=== PATIENT | female | born 1935 | race Caucasian/White ===

== ENCOUNTER 2020-07-17 09:16 | Outpatient (CLI) | payer MEDICARE, SELFPAY | END 2020-07-17 09:17 | disposition home or self-care (01) | LOC: ANHCOVIDVC 09:17 | PROVIDERS: PCP Family Medicine | DX: Z23 Encounter for immunization (principal) | CPT/HCPCS: 0001A; 91300 ==

== ENCOUNTER 2020-08-07 09:16 | Outpatient (CLI) | payer MEDICARE, SELFPAY | END 2020-08-07 09:17 | disposition home or self-care (01) | LOC: ANHCOVIDVC 09:16 | PROVIDERS: PCP Family Medicine | DX: Z23 Encounter for immunization (principal) | CPT/HCPCS: 0002A; 91300 ==

== ENCOUNTER 2021-07-03 11:44 | Inpatient (IN) | payer MEDICARE, SELFPAY ==
[2021-07-03] VITALS (8 sets, daily range): BP systolic 109–155; BP diastolic 51–97; PULSE 98–119; RESP 16–22; TEMP 36.4–36.9; O2SAT 94–100
--- NOTE | ~2021-07-03 | XR_ITS ---
EXAMINATION: XR chest 1V portable DATE: 07/03/2021 12:23 INDICATION: Found down. Weakness. TECHNIQUE: frontal view of the chest was obtained. COMPARISON: Chest radiograph dated 12/25/2018 FINDINGS: Mild opacities in the bilateral lower lung zones. No pleural effusion or pneumothorax. Cardiomegaly. Chronic compression and burst fractures in the lower thoracic and upper lumbar spine. Degenerative sk eletal changes in the spine and at the bilateral shoulders. IMPRESSION: 1. Mild opacities in the bilateral lower lung zones which could represent atelectasis, mild pulmonary edema or pneumonia. 2. Cardiomegaly. 3. Chronic compression and burst fractures in the lower thoracic and upper lumbar spine. Reviewed, dictated and finalized at location A. ER INSPECTOR IMPRESSION: 1. Mild opacities in the bilateral lower lung zones which could represent atele ctasis, mild pulmonary edema or pneumonia. 2. Cardiomegaly. 3. Chronic compression and burst fractures in the lower thoracic and upper lumb ar spine.
--- NOTE | ~2021-07-03 | CT_ITS ---
EXAMINATION: CT brain wo con DATE: 07/03/2021 12:58 INDICATION: Found down post fall. Weakness. TECHNIQUE: Computed tomography (CT) of the head was performed without intravenous contrast. Sagittal and coronal reconstructions were performed. The mA was adjusted according to patient size. Iterative reconstruction technique was employed. The dose-length product was 681.00 mGy-cm. COMPARISON: head CT dated 12/17/2018 FINDINGS: No fracture. No acute intracranial hemorrhage, acute infarction or abnormal extra axial fluid collect ion. There is mild scattered white matter hypoattenuation consistent with chronic small vessel ischem ic disease. Symmetric prominence of the sulci and ventricles consistent with moderate age-appropriate diffuse cerebral volume loss. No mass/mass effect. Intracranial calcified cerebral atherosclerosis i s noted at the carotid siphons. The orbits, paranasal sinuses and mastoid air cells are normal. IMPRESSION: 1. No fracture or acute intracranial process. 2. Age-related changes including moderate diffuse volume loss and mild scattered white matter hypoatt enuation consistent with chronic small vessel ischemic disease. Reviewed, dictated and finalized at location A. EF MASTER IMPRESSION: 1. No fracture or acute intracranial process. 2. Age-related changes including moderate diffuse volume loss and mild scattere d white matter hypoattenuation consistent with chronic small vessel ischemic di sease.
--- NOTE | ~2021-07-03 | CT_ITS ---
EXAMINATION: CT cervical spine wo con DATE: 07/03/2021 12:58 INDICATION: Ground-level fall with head injury. Weakness. TECHNIQUE: Computed tomography (CT) of the cervical spine was performed without intravenous contrast. Automated exposure control and iterative reconstruction technique were employed. The dose-length pro duct was 288.75 mGy-cm. COMPARISON: 12/17/2018 FINDINGS: Mild cervical dextrocurvature. Sagittal alignment is normal. Vertebral body heights are normal. No fr acture identified. There is anterior fusion at C5-C6. Moderate disc height loss at C4-C5 and C6-C7. M ild disc height loss at the remaining cervical levels. Multilevel disc bulges and disc osteophyte com plexes throughout the cervical spine resulting in multilevel mild central canal stenosis greatest at C2-C3 and C5-C6. Multilevel moderate to severe bilateral facet and uncovertebral osteoarthritis contr ibuting to mild neural foraminal stenosis at multiple levels on both the left and right. Small amount of atherosclerotic calcific lesion at the bilateral carotid bulbs. Cervical soft tissues are otherwi se unremarkable. Chronic pleural parenchymal scarring at the posterolateral right upper lobe. IMPRESSION: 1. Moderate to severe cervical spondylosis. No acute osseous abnormality. Reviewed, dictated and finalized at location A. CTOR NON PROFIT
--- NOTE | 2021-07-03 12:05 | ECG_ITS ---
Measurements Intervals [place] Rate: 94 P: 56 MN: 114 QRS: 3 QRSD: 89 T: 14 QT: 366 QTc: 459 Interpretive Statements SINUS RHYTHM WITH SHORT MN INTERVAL DELAYED PRECORDIAL R/S TRANSITION BORDERLINE ST-T WAVE ABNORMALITY- ANT/INF LEADS BASELINE ARTIFACT- I, II, III, AVR, AVL, AVF, V1-V6 BORDERLINE ECG Electronically Signed On 07-03-2021 18:45:44 [employer] by Angel Castro D.O.
--- NOTE | 2021-07-03 12:18 | ED.FALL ---
HPI - Fall General Chief Complaint: Fall Stated Complaint: WEAKNESS Time Seen by Provider: 07/03/21 11:56 Source: patient and family History of Present Illness HPI Narrative: Patient lives alone and was found on the ground next to her bed by her son. Her son checks on her mostly works week to fill her pillowcase. Today but he went to check on her she was laying next to the bed wrapped up in a vacuum cord with her head on a pillow reports her pants were partially down and she had stooled on the floor. Patient does not remember what happened she reports she is old and cannot remember. Related Data Home Medications Medication Instructions Recorded Confirmed cranberry 400 mg capsule 400 mg PO DAILY 04/03/19 07/03/21 Allergies Allergy/AdvReac Type Severity Reaction Status Date / Time No Known Allergies Allergy Verified 07/03/21 11:51 Review of Systems Review of Systems: CONSTITUTIONAL: Denies fever, chills, or sweats. EYES: Denies visual changes, redness, or discharge. ENT: Denies rhinorrhea, congestion, sore throat, or otalgia. CARDIOVASCULAR: Denies chest pain, palpitations, or edema. RESPIRATORY: Denies cough or dyspnea. GASTROINTESTINAL: Denies abdominal pain, nausea, vomiting, or diarrhea. GENITOURINARY: Denies dysuria or hematuria. SKIN: Denies rash or itching. MUSCULOSKELETAL: Denies back pain, joint pain, or myalgia. NEUROLOGIC: Denies headache, numbness, dizziness, or weakness. PSYCHIATRIC: Denies anxiety or depression. All systems reviewed & are unremarkable except as noted in HPI and below PMFSH Surgical History Surgical History H/O: hysterectomy total 1980 Family History Family History Mother Depression Other Family history of cardiovascular disease Social History Social History Smoking status: Never smoker Second hand tobacco smoke exposure: No Alcohol intake: never Substance use: never Spiritual care concerns: No Exam Narrative: GENERAL: Well-appearing, well-nourished, and in no acute distress. HEAD: Normocephalic, atraumatic. EYES: PERRLA and EOMI. ENT: Nares clear, no rhinorrhea or epistaxis. Mucous membranes moist. NECK: Supple. No masses. No JVD CHEST: Clear to auscultation. No respiratory distress. No wheezes rales or rhonchi HEART: Regular tachycardia. No murmur heard. Normal peripheral pulses. ABDOMEN: Soft, nontender, nondistended, normal active bowel sounds. EXTREMITIES: Normal range of motion. No edema. SKIN: Warm, dry, no rash. NEURO: No focal deficits. Alert and oriented x2. PSYCH: Normal mood and affect. Course Reevaluation(s) Reevaluation #1: Patient resting comfortably results and plan reviewed with patient. Patient is comfortable with inpatient plan. Vital Signs Vital signs: Vital Signs Temperature 36.6 C 07/03/21 11:46 Pulse Rate 119 H 07/03/21 11:46 Respiratory Rate 20 07/03/21 11:46 Blood Pressure 150/97 H 07/03/21 11:46 Pulse Oximetry 95 07/03/21 11:46 Temperature 36.9 C 07/03/21 16:35 Pulse Rate 98 07/03/21 17:00 Respiratory Rate 16 07/03/21 16:35 Blood Pressure 109/57 L 07/03/21 16:35 Pulse Oximetry 100 07/03/21 16:35 MDM - Fall MDM Narrative Medical decision making narrative: Patient was brought to the ER after she was found down there is unknown downtime patient does not recall the events. She had no focal areas of pain and appeared to be neurologically at her baseline at time of my evaluation. Labs and imaging obtained notable for elevated CK UA concerning for infection imaging was without acute process. Patient was started on antibiotics and fluids. Patient will be admitted to the hospitalist team for further management. Lab Data Result diagrams: 07/03/21 12:12 07/03/21 12:12 Labs: Lab Results
[2021-07-03] MEDS: SODIUM CHLORIDE 0.9% IV 1,000 ML 999 ML IV CONT ×2 (12:26→15:15)
[2021-07-03 12:29] LABS: Basophils Percent Auto 0.1 % (0.2-1.2); Hematocrit 40.6 % (37.0-47.0); Hemoglobin 13.4 g/dL (12.0-15.0); Immature Granulocyte Percent A 0.6 % (0-0.5); Lymphocytes Absolute Auto 0.69 K/mm3 (0.9-3.2); Lymphocytes Percent Auto 4.4 % (18.3-44.2); Mean Corpuscular Hemoglobin 27.9 pg (26-34); Mean Corpuscular Volume 84.6 fl (80-100); Mean Platelet Volume 9.8 fl (7.4-10.4); Monocytes Absolute Auto 1.1 K/mm3 (0.1-0.6); Neutrophils Absolute Auto 13.7 K/mm3 (1.3-6.7); Neutrophils Percent Auto 87.9 % (45.5-73.1); Platelet Count Result 428 k/mm3 (150-375); Red Cell Distribution Width 15.2 % (11.5-14.5); White Blood Count 15.6 K/mm3 (4.5-10.0)
[2021-07-03 12:54] LABS: Alanine Aminotransferase 62 U/L (4-35); Albumin Level 3.7 g/dL (3.5-5.1); Alkaline Phosphatase 124 U/L (38-126); Anion Gap 13 mmol/L (8-16); Aspartate Amino Transferase 198 U/L (14-36); Blood Urea Nitrogen 35 mg/dL (7-17); Calcium 9.9 mg/dL (8.4-10.2); Carbon Dioxide 20 mmol/L (22-30); Chloride 104 mmol/L (98-107); Creatine Kinase 3104 U/L (30-135); Estimated CRCL calculation 31 ml/min; Estimated Glomerular Filt Rate 43; Glucose 151 mg/dL (65-110); Potassium 4.8 mmol/L (3.4-5.0); Sodium 137 mmol/L (137-145)
[2021-07-03 13:57] LABS: Add Urine Microscopic? YES; Appearance Urine Clear (Clear); Bilirubin Urine Negative (Negative); Blood Urine 3+ (Negative); Color Urine Yellow (Yellow); Glucose Urine UA Negative (Negative); Ketones Urine Trace mg/dL (Negative); Leukocyte Esterase Ur 1+ LEU/UL (Negative); Mucus Urine Rare /lpf; Nitrate Urine Positive (Negative); Protein Urine 1+ mg/dL (Negative); Specific Grav Ur 1.017 (1.001-1.035); Squamous Epithelial Cell Urine Rare /hpf (Few); Urobilinogen Urine Negative mg/dL (<2.0); WBC Urine >75 /hpf
[2021-07-03 14:28] LABS: Lactic Acid Reflex 2.6 mmol/L (0.7-2.1)
--- NOTE | 2021-07-03 15:00 | PM.IMHP ---
H&P: HPI History of Present Illness Date/Time: 07/03/21 15:00 Chief Complaint: Found down. Narrative: This is a pleasant 85-year-old female with history of hypertension, hypothyroidism, GERD, and anxiety presented to the emergency department via EMS from home for evaluation after she was found down by her son. She seems to be forgetful though has no formal diagnosis of dementia. As such she is not able to provide a great history and she seems to not really recall what happened today. It is my understanding that she lives in her own home and is typically quite independent the her son comes by every Monday to help get her medications in order. When he arrived today she was found lying on the floor in her bedroom. She was apparently tangled up in a vacuum cord, her pants were partially down, and she had stooled floor. She was found to be in mild rhabdomyolysis and is being admitted in this setting. At the time my evaluation, she has no complaints aside from the fact that she is a bit thirsty and hungry. She does not recall how she ended up on the floor and seems to confabulate somewhat though she is alert and oriented at this time. She denies headache, fever, chills, sweats, recent cold and flu symptoms, chest pain, shortness breast, nausea, vomiting, diarrhea, and dysuria. She does not think she sustained any injuries and she has no complaints of pain. Review of Systems Review of Systems: Twelve systems were reviewed and are negative except for as per HPI. FORMERLY [facility], [facility] Past Medical History Medical History (Updated 07/03/21 @ 23:43 by Genet Freitas PA-C) Benign essential hypertension Chronic kidney disease, stage 3 Chronic recurrent major depressive disorder Hyperlipidemia Hypothyroidism Surgical History Surgical History (Updated 07/03/21 @ 23:39 by Genet Freitas PA-C) History of total hysterectomy (1980) Family History Family History Mother Depression Other Family history of cardiovascular disease Social History Social History (Updated 07/03/21 @ 23:40 by Genet Freitas PA-C) Social History: Surrogate decision maker: Dustin Roberto, mychal. Code status: Full code. Smoking status: Never smoker Second hand tobacco smoke exposure: No Alcohol intake: never Substance use: never Additional living arrangements comments: The patient lives in her own home in [place]. Meds Home Medications and Allergies Home Medications Medication Instructions Recorded Confirmed Type cranberry 400 mg capsule 400 mg PO DAILY 04/03/19 07/03/21 History Synthroid 50 mcg tablet See Rx Instructions .ROUTE 02/15/21 07/03/21 Rx .COMPLEX #90 tablet NS atorvastatin 10 mg tablet See Rx Instructions .ROUTE 02/18/21 07/03/21 Rx .COMPLEX #90 tablet metoprolol tartrate 25 mg tablet See Rx Instructions .ROUTE 03/11/21 07/03/21 Rx .COMPLEX #60 tablet Allergies Allergy/AdvReac Type Severity Reaction Status Date / Time No Known Allergies Allergy Verified 07/03/21 11:51 Vital Signs Vital Signs - 24 hr 07/03/21 11:46 Temperature 97.8 F Pulse Rate 119 H Respiratory Rate 20 Blood Pressure 150/97 H Pulse Oximetry 95 Exam Narrative: General: Well-developed elderly female in the semi-Jonas position in bed. Weight: 80 kg. BMI: 30.3. HEENT: Normocephalic, atraumatic. PERRL, EOMI. Sclerae anicteric. Tacky mucous membranes. Upper denture in place. Neck: Supple. No obvious carotid bruits, JVD, or thyromegaly. Respiratory: Lungs are clear to auscultation bilaterally. Cardiovascular: Regular rate and rhythm with S1-S2. Gastrointestinal: Abdomen is soft, nontender, and nondistended with positive bowel sounds. Skin: Warm and dry. No rash or lesions on limited exam. Extremities: No cyanosis, clubbing, or edema. Radial and pedal pulses intact. Neurological: Alert and oriented to name, age, date of , year, and place. She is aware that she
[2021-07-03 17:08] LABS: Reflex Lactic Acid Yes or No Add Lactic
[2021-07-03 17:50] LABS: Lactic Acid 1.2 mmol/L (0.7-2.1)
--- NOTE | 2021-07-03 18:24 | PC.NURSE ---
Guest Admitted from ED related to a fall at home. Guest will be admitted for treatment of UTI. Son at bedside to verify medical history and medications. He would like to discuss placement options for her discharge. The guest is alert to self and place but able to follow simple commands. Son states she should be made a DNR/DNI he will be bringing paperwork up to update her records.
[2021-07-03 23:37] LABS: Creatine Kinase 2585 U/L (30-135)
[2021-07-04] VITALS (14 sets, daily range): BP systolic 121–140; BP diastolic 51–61; PULSE 74–107; RESP 16–22; TEMP 36.3–37; O2SAT 94–96
[2021-07-04] MEDS: SODIUM CHLORIDE 0.9% IV 1,000 ML 80 ML IV CONT ×2 (00:37→07:53)
[2021-07-04] MEDS: LEVOTHYROXINE SODIUM 50 MCG TABLET PO (05:24)
[2021-07-04 06:08] LABS: Alanine Aminotransferase 58 U/L (4-35); Albumin Level 2.8 g/dL (3.5-5.1); Alkaline Phosphatase 79 U/L (38-126); Anion Gap 2 mmol/L (8-16); Aspartate Amino Transferase 147 U/L (14-36); Bilirubin,Total 0.7 mg/dL (0.2-1.3); Blood Urea Nitrogen 32 mg/dL (7-17); Calcium 8.5 mg/dL (8.4-10.2); Carbon Dioxide 24 mmol/L (22-30); Chloride 106 mmol/L (98-107); Estimated CRCL calculation 35 ml/min; Estimated Glomerular Filt Rate 53; Glucose 98 mg/dL (65-110); Magnesium 2.1 mg/dL (1.6-2.3); Potassium 3.6 mmol/L (3.4-5.0); Sodium 132 mmol/L (137-145)
[2021-07-04 06:19] LABS: Creatine Kinase 2452 U/L (30-135)
[2021-07-04 06:52] LABS: Hematocrit 28.2 % (37.0-47.0); Hemoglobin 9.4 g/dL (12.0-15.0); Mean Corpuscular HGB Conc 33.3 g/dl (32-36); Mean Corpuscular Hemoglobin 27.9 pg (26-34); Mean Corpuscular Volume 83.7 fl (80-100); Mean Platelet Volume 9.3 fl (7.4-10.4); Platelet Count Result 295 k/mm3 (150-375); Red Blood Count 3.37 M/mm3 (4.2-5.4); Red Cell Distribution Width 15.1 % (11.5-14.5); White Blood Count 9.9 K/mm3 (4.5-10.0)
[2021-07-04] MEDS: METOPROLOL TARTRATE 25 MG TABLET PO ×2 (07:54→20:30)
[2021-07-04 08:40] LABS: Free T4 Free Thyroxine Reflex 1.24 ng/dL (0.78-2.19)
[2021-07-04 09:22] LABS: Total Triiodothyronine (T3) 0.68 NG/ML (0.97-1.69)
--- NOTE | 2021-07-04 11:26 | P.PNIM_ITS ---
Progress Note: A&P Assessment and Plan (1) Rhabdomyolysis: Qualifiers: Encounter type: initial encounter Rhabdomyolysis type: traumatic Qualified Code(s): T79.6XXA - Traumatic ischemia of muscle, initial encounter Code(s): M62.82 - Rhabdomyolysis Status: Acute Assessment and Plan: Patient was found on the ground, there for an unknown length of time. * CK on presentation was 3100 * Continue with IV fluid rehydration * CK imporved to 2450 today * Renal function stable * Continue to monitor closely (2) Urinary tract infection: Code(s): N39.0 - Urinary tract infection, site not specified Status: Acute Assessment and Plan: UA grossly abnormal inpatient is increased confusion * Continue IV Rocephin * Urine culture is pending (3) Acute metabolic encephalopathy: Code(s): G93.41 - Metabolic encephalopathy Status: Acute Assessment and Plan: Patient has increased confusion today * Suspect secondary to UTI * Head CT with no acute intracranial findings * Continue to monitor mental status closely (4) Urinary retention: Code(s): R33.9 - Retention of urine, unspecified Status: Acute Assessment and Plan: Last night noted to have urinary retention on bladder scan * Straight cathed early this morning with >600 cc urine output * Did have incontinent void this morning, not able to quantify amount of urine output * Continue to monitor urine output closely. Repeat bladder scan this afternoon * If any further episodes of retention, she will require Flores catheter (5) Chronic kidney disease, stage 3: Code(s): N18.3 - Chronic kidney disease, stage 3 (moderate) Status: Chronic Assessment and Plan: Renal function reviewed in appears consistent with baseline * Continue to monitor BMP (6) Benign essential hypertension: Code(s): I10 - Essential (primary) hypertension Status: Chronic Assessment and Plan: Blood pressures were reviewed and they are stable. Last BP 135/58 * Continue metoprolol tartrate 25 mg b.i.d. * Monitor blood pressure trends (7) Hypothyroidism: Qualifiers: Hypothyroidism type: unspecified Qualified Code(s): E03.9 - Hypothyroidism, unspecified Code(s): E03.9 - Hypothyroidism, unspecified Status: Chronic Assessment and Plan: TSH is mildly elevated with normal T4, slightly decreased T3 * Continue levothyroxine * She will need repeat reflex TSH in 4-6 weeks as an outpatient upon resolution of acute illness (8) Elevated LFTs: Code(s): R79.89 - Other specified abnormal findings of blood chemistry Status: Acute Assessment and Plan: Most likely related to rhabdomyolysis. * LFTs improving today * Statin on hold. Resume when appropriate * Continue to monitor LFT (9) Anemia: Code(s): D64.9 - Anemia, unspecified Status: Acute Assessment and Plan: Noted to have 4 point decline in hemoglobin from admission * Current hemoglobin (9.4) appears more consistent with the patient's baseline * Suspect initial H&H was hemoconcentrated and has returned to baseline with rehydration * Repeat H&H this afternoon to ensure remaining stable * Continue to monitor H&H closely Subjective Date/time seen: 07/04/21 11:26 Interval history: Date of service: 07/04/2021 Lashawn Roberto is an 85-year-old female with a history of CKD, hypertension, hyperlipidemia, hypothyroid
--- NOTE | 2021-07-04 11:26 | PM.IMPN ---
Progress Note: A&P Assessment and Plan (1) Rhabdomyolysis: Qualifiers: Encounter type: initial encounter Rhabdomyolysis type: traumatic Qualified Code(s): T79.6XXA - Traumatic ischemia of muscle, initial encounter Code(s): M62.82 - Rhabdomyolysis Status: Acute Assessment and Plan: Patient was found on the ground, there for an unknown length of time. CK on presentation was 3100 Continue with IV fluid rehydration CK imporved to 2450 today Renal function stable Continue to monitor closely (2) Urinary tract infection: Code(s): N39.0 - Urinary tract infection, site not specified Status: Acute Assessment and Plan: UA grossly abnormal inpatient is increased confusion Continue IV Rocephin Urine culture is pending (3) Acute metabolic encephalopathy: Code(s): G93.41 - Metabolic encephalopathy Status: Acute Assessment and Plan: Patient has increased confusion today Suspect secondary to UTI Head CT with no acute intracranial findings Continue to monitor mental status closely (4) Urinary retention: Code(s): R33.9 - Retention of urine, unspecified Status: Acute Assessment and Plan: Last night noted to have urinary retention on bladder scan Straight cathed early this morning with >600 cc urine output Did have incontinent void this morning, not able to quantify amount of urine output Continue to monitor urine output closely. Repeat bladder scan this afternoon If any further episodes of retention, she will require Flores catheter (5) Chronic kidney disease, stage 3: Code(s): N18.3 - Chronic kidney disease, stage 3 (moderate) Status: Chronic Assessment and Plan: Renal function reviewed in appears consistent with baseline Continue to monitor BMP (6) Benign essential hypertension: Code(s): I10 - Essential (primary) hypertension Status: Chronic Assessment and Plan: Blood pressures were reviewed and they are stable. Last BP 135/58 Continue metoprolol tartrate 25 mg b.i.d. Monitor blood pressure trends (7) Hypothyroidism: Qualifiers: Hypothyroidism type: unspecified Qualified Code(s): E03.9 - Hypothyroidism, unspecified Code(s): E03.9 - Hypothyroidism, unspecified Status: Chronic Assessment and Plan: TSH is mildly elevated with normal T4, slightly decreased T3 Continue levothyroxine She will need repeat reflex TSH in 4-6 weeks as an outpatient upon resolution of acute illness (8) Elevated LFTs: Code(s): R79.89 - Other specified abnormal findings of blood chemistry Status: Acute Assessment and Plan: Most likely related to rhabdomyolysis. LFTs improving today Statin on hold. Resume when appropriate Continue to monitor LFT (9) Anemia: Code(s): D64.9 - Anemia, unspecified Status: Acute Assessment and Plan: Noted to have 4 point decline in hemoglobin from admission Current hemoglobin (9.4) appears more consistent with the patient's baseline Suspect initial H&H was hemoconcentrated and has returned to baseline with rehydration Repeat H&H this afternoon to ensure remaining stable Continue to monitor H&H closely Subjective Date/time seen: 07/04/21 11:26 Interval history: Date of service: 07/04/2021 Lashawn Roberto is an 85-year-old female with a history of CKD, hypertension, hyperlipidemia, hypothyroidism who is seen in follow-up for rhabdomyolysis. She is a poor historian and has difficulty recalling events leading to hospitalization. She states she cannot remember what happened or how she got here. She states ?I am so confused. When I asked for some further information, she told me that she thinks she lives alone. She thinks she manages her household by herself but does not think that she drives or cooks. She does know that she has a son named Dustin. She tells me she used to be
[2021-07-04 12:01] LABS: Hematocrit 30.9 % (37.0-47.0)
[2021-07-04] MEDS: ACETAMINOPHEN 325 MG TABLET 650 MG PO (14:13)
[2021-07-05] VITALS (10 sets, daily range): BP systolic 122–156; BP diastolic 53–60; PULSE 82–99; RESP 16–20; TEMP 36.4–37; O2SAT 94–96
[2021-07-05] MEDS: SODIUM CHLORIDE 0.9% IV 1,000 ML 80 ML IV CONT ×2 (02:03→14:41)
[2021-07-05 05:49] LABS: Hematocrit 29.7 % (37.0-47.0); Hemoglobin 9.9 g/dL (12.0-15.0); Mean Corpuscular HGB Conc 33.3 g/dl (32-36); Mean Corpuscular Hemoglobin 27.8 pg (26-34); Mean Corpuscular Volume 83.4 fl (80-100); Mean Platelet Volume 9.7 fl (7.4-10.4); Platelet Count Result 295 k/mm3 (150-375); Red Blood Count 3.56 M/mm3 (4.2-5.4); White Blood Count 7.7 K/mm3 (4.5-10.0)
[2021-07-05 06:02] LABS: Alanine Aminotransferase 62 U/L (4-35); Albumin Level 2.6 g/dL (3.5-5.1); Alkaline Phosphatase 72 U/L (38-126); Anion Gap 3 mmol/L (8-16); Aspartate Amino Transferase 122 U/L (14-36); Bilirubin,Total 0.7 mg/dL (0.2-1.3); Blood Urea Nitrogen 19 mg/dL (7-17); Carbon Dioxide 21 mmol/L (22-30); Chloride 110 mmol/L (98-107); Creatine Kinase 1121 U/L (30-135); Estimated CRCL calculation 44 ml/min; Estimated Glomerular Filt Rate > 60; Glucose 91 mg/dL (65-110); Potassium 3.2 mmol/L (3.4-5.0); Sodium 134 mmol/L (137-145)
[2021-07-05] MEDS: LEVOTHYROXINE SODIUM 50 MCG TABLET PO (06:25)
[2021-07-05] MEDS: POTASSIUM CHLORIDE 20 MEQ TABLET PO (08:14)
[2021-07-05] MEDS: METOPROLOL TARTRATE 25 MG TABLET PO ×2 (08:15→20:02)
--- NOTE | 2021-07-05 10:29 | P.PNIM_ITS ---
Progress Note: A&P Assessment and Plan (1) Rhabdomyolysis: Qualifiers: Encounter type: initial encounter Rhabdomyolysis type: traumatic Qualified Code(s): T79.6XXA - Traumatic ischemia of muscle, initial encounter Code(s): M62.82 - Rhabdomyolysis Status: Acute Assessment and Plan: Patient was found on the ground, there for an unknown length of time. * CK on presentation was 3100 * 3+ blood on UA secondary to rhabdo * Continue with IV fluid rehydration * CK imporved to 1120 today * Continue to monitor closely (2) Urinary tract infection: Code(s): N39.0 - Urinary tract infection, site not specified Status: Acute Assessment and Plan: UA abnormal with nitrate, leuk est, and >75 WBC in patient with increased confusion * Started on IV Rocephin while awaiting cultures * Preliminary urine culture with >100k coag-negative staph. Susceptibility report pending * This is likely to be a contaminant. * At this point will hold antibiotics and monitor the patient clinically. * She is afebrile. (3) Acute metabolic encephalopathy: Code(s): G93.41 - Metabolic encephalopathy Status: Acute Assessment and Plan: Patient had increased confusion * Initially thought to be due to UTI though appears to be contaminant. Could be due to acute urinary retention. * Patients son reports that she does have some confusion/forgetfulness at baseline * Head CT with no acute intracranial findings * Continue to monitor mental status closely * She is A&Ox2 today and seems to be consistent with her baseline per her son (4) Urinary retention: Code(s): R33.9 - Retention of urine, unspecified Status: Acute Assessment and Plan: New onset urinary retention * 07/04 required straight cath with >600 cc urine output * Failed subsequent voiding trial with ongoing retention on bladder scan * Flores catheter started 07/04/21 * Will initiate tamsulosin and she will follow up with urology on discharge for voiding trial (5) Chronic kidney disease, stage 3: Code(s): N18.3 - Chronic kidney disease, stage 3 (moderate) Status: Chronic Assessment and Plan: Renal function reviewed and appears consistent with baseline * Continue to monitor BMP (6) Benign essential hypertension: Code(s): I10 - Essential (primary) hypertension Status: Chronic Assessment and Plan: Blood pressures were reviewed and they are stable. Last BP 156/60 * Continue metoprolol tartrate 25 mg b.i.d. * Monitor blood pressure trends (7) Hypothyroidism: Qualifiers: Hypothyroidism type: unspecified Qualified Code(s): E03.9 - Hypothyroidism, unspecified Code(s): E03.9 - Hypothyroidism, unspecified Status: Chronic Assessment and Plan: TSH is mildly elevated with normal T4, slightly decreased T3 * Continue levothyroxine * She will need repeat reflex TSH in 4-6 weeks as an outpatient upon resolution of acute illness (8) Elevated LFTs: Code(s): R79.89 - Other specified abnormal findings of blood chemistry Status: Acute Assessment and Plan: Most likely related to rhabdomyolysis. * LFTs with slight improvement * Statin on hold. Resume when appropriate * Continue to monitor LFT (9) Anemia: Code(s): D64.9 - Anemia, unspecified Status: Acute Assessment and Plan: Noted to have 4 point decline in hemoglobin from admission * Current hemoglobin (9.9) appears m
--- NOTE | 2021-07-05 10:29 | PM.IMPN ---
Progress Note: A&P Assessment and Plan (1) Rhabdomyolysis: Qualifiers: Encounter type: initial encounter Rhabdomyolysis type: traumatic Qualified Code(s): T79.6XXA - Traumatic ischemia of muscle, initial encounter Code(s): M62.82 - Rhabdomyolysis Status: Acute Assessment and Plan: Patient was found on the ground, there for an unknown length of time. CK on presentation was 3100 3+ blood on UA secondary to rhabdo Continue with IV fluid rehydration CK imporved to 1120 today Continue to monitor closely (2) Urinary tract infection: Code(s): N39.0 - Urinary tract infection, site not specified Status: Acute Assessment and Plan: UA abnormal with nitrate, leuk est, and >75 WBC in patient with increased confusion Started on IV Rocephin while awaiting cultures Preliminary urine culture with >100k coag-negative staph. Susceptibility report pending This is likely to be a contaminant. At this point will hold antibiotics and monitor the patient clinically. She is afebrile. (3) Acute metabolic encephalopathy: Code(s): G93.41 - Metabolic encephalopathy Status: Acute Assessment and Plan: Patient had increased confusion Initially thought to be due to UTI though appears to be contaminant. Could be due to acute urinary retention. Patients son reports that she does have some confusion/forgetfulness at baseline Head CT with no acute intracranial findings Continue to monitor mental status closely She is A&Ox2 today and seems to be consistent with her baseline per her son (4) Urinary retention: Code(s): R33.9 - Retention of urine, unspecified Status: Acute Assessment and Plan: New onset urinary retention 07/04 required straight cath with >600 cc urine output Failed subsequent voiding trial with ongoing retention on bladder scan Flores catheter started 07/04/21 Will initiate tamsulosin and she will follow up with urology on discharge for voiding trial (5) Chronic kidney disease, stage 3: Code(s): N18.3 - Chronic kidney disease, stage 3 (moderate) Status: Chronic Assessment and Plan: Renal function reviewed and appears consistent with baseline Continue to monitor BMP (6) Benign essential hypertension: Code(s): I10 - Essential (primary) hypertension Status: Chronic Assessment and Plan: Blood pressures were reviewed and they are stable. Last BP 156/60 Continue metoprolol tartrate 25 mg b.i.d. Monitor blood pressure trends (7) Hypothyroidism: Qualifiers: Hypothyroidism type: unspecified Qualified Code(s): E03.9 - Hypothyroidism, unspecified Code(s): E03.9 - Hypothyroidism, unspecified Status: Chronic Assessment and Plan: TSH is mildly elevated with normal T4, slightly decreased T3 Continue levothyroxine She will need repeat reflex TSH in 4-6 weeks as an outpatient upon resolution of acute illness (8) Elevated LFTs: Code(s): R79.89 - Other specified abnormal findings of blood chemistry Status: Acute Assessment and Plan: Most likely related to rhabdomyolysis. LFTs with slight improvement Statin on hold. Resume when appropriate Continue to monitor LFT (9) Anemia: Code(s): D64.9 - Anemia, unspecified Status: Acute Assessment and Plan: Noted to have 4 point decline in hemoglobin from admission Current hemoglobin (9.9) appears more consistent with the patient's baseline Suspect initial H&H was hemoconcentrated and has returned to baseline with rehydration Continue to monitor closely Subjective Date/time seen: 07/05/21 10:29 Interval history: Date of service: 07/05/2021 Lashawn Roberto is an 85-year-old female with a history of CKD, hypertension, hyperlipidemia, hypothyroidism who is seen in follow-up for rhabdomyolysis. She is forgetful and thus is a poor historian. She is feeling
[2021-07-05 15:15] LABS: Ammonia < 9 umol/L (9-30)
[2021-07-06] VITALS (14 sets, daily range): BP systolic 105–154; BP diastolic 48–60; PULSE 74–112; RESP 14–18; TEMP 36.7–36.8; O2SAT 92–96
[2021-07-06] MEDS: SODIUM CHLORIDE 0.9% IV 1,000 ML 80 ML IV CONT (06:15)
[2021-07-06] MEDS: LEVOTHYROXINE SODIUM 50 MCG TABLET PO (06:16)
[2021-07-06 06:20] LABS: Hematocrit 35.7 % (37.0-47.0); Hemoglobin 11.5 g/dL (12.0-15.0); Mean Corpuscular HGB Conc 32.2 g/dl (32-36); Mean Corpuscular Hemoglobin 27.8 pg (26-34); Mean Corpuscular Volume 86.2 fl (80-100); Mean Platelet Volume 9.9 fl (7.4-10.4); Platelet Count Result 337 k/mm3 (150-375); Red Blood Count 4.14 M/mm3 (4.2-5.4); Red Cell Distribution Width 15.3 % (11.5-14.5)
[2021-07-06 06:29] LABS: Alanine Aminotransferase 68 U/L (4-35); Albumin Level 3.1 g/dL (3.5-5.1); Alkaline Phosphatase 78 U/L (38-126); Anion Gap 3 mmol/L (8-16); Aspartate Amino Transferase 110 U/L (14-36); Bilirubin,Total 0.8 mg/dL (0.2-1.3); Blood Urea Nitrogen 17 mg/dL (7-17); Calcium 8.3 mg/dL (8.4-10.2); Carbon Dioxide 24 mmol/L (22-30); Chloride 109 mmol/L (98-107); Creatine Kinase 661 U/L (30-135); Estimated CRCL calculation 49 ml/min; Estimated Glomerular Filt Rate > 60; Glucose 102 mg/dL (65-110); Potassium 3.7 mmol/L (3.4-5.0); Sodium 136 mmol/L (137-145)
[2021-07-06] MEDS: TAMSULOSIN HCL 0.4 MG CAPSULE PO (08:25)
[2021-07-06] MEDS: METOPROLOL TARTRATE 25 MG TABLET PO (08:25)
--- NOTE | 2021-07-06 09:18 | PCPTNOTE ---
Patient refused treatment this session due to abdominal pain.
[2021-07-06] MEDS: ACETAMINOPHEN 325 MG TABLET 650 MG PO (13:15)
--- NOTE | 2021-07-06 13:56 | P.PNIM_ITS ---
Progress Note: A&P Assessment and Plan (1) Rhabdomyolysis: Qualifiers: Encounter type: initial encounter Rhabdomyolysis type: traumatic Qualified Code(s): T79.6XXA - Traumatic ischemia of muscle, initial encounter Code(s): M62.82 - Rhabdomyolysis Status: Acute Assessment and Plan: Patient was found on the ground, there for an unknown length of time. * CK on presentation was 3100 * 3+ blood on UA secondary to rhabdo * Improved with IV fluid rehydration * CK is 660 today * Will discontinue IV fluids (2) Urinary tract infection: Code(s): N39.0 - Urinary tract infection, site not specified Status: Acute Assessment and Plan: UA abnormal on presentation with increased confusion though no urinary symptoms * Started on IV Rocephin while awaiting cultures * Preliminary urine culture with >100k coag-negative staph * This is likely to be a contaminant therefore antibiotics discontinued 07/06 * No leukocytosis. Patient remains afebrile. (3) Acute metabolic encephalopathy: Code(s): G93.41 - Metabolic encephalopathy Status: Acute Assessment and Plan: Patient had increased confusion on presentation * Initially thought to be due to UTI though appears to be contaminant. Likely due to acute urinary retention. * Suspect that patient has underlying dementia. * Head CT with no acute intracranial findings * Continue to monitor mental status closely * She is A&Ox2 today. Seems to be near her baseline (4) Urinary retention: Code(s): R33.9 - Retention of urine, unspecified Status: Acute Assessment and Plan: New onset urinary retention * 07/04 required straight cath with >600 cc urine output * Failed subsequent voiding trial with ongoing retention on bladder scan * Flores catheter started 07/04/21 * Continue tamsulosin and she will follow up with urology on discharge for voiding trial (5) Chronic kidney disease, stage 3: Code(s): N18.3 - Chronic kidney disease, stage 3 (moderate) Status: Chronic Assessment and Plan: Renal function reviewed and appears consistent with baseline * Continue to monitor BMP (6) Benign essential hypertension: Code(s): I10 - Essential (primary) hypertension Status: Chronic Assessment and Plan: Blood pressures were reviewed and they are stable. Last BP 154/60 * Continue metoprolol tartrate 25 mg b.i.d. * Monitor blood pressure trends (7) Hypothyroidism: Qualifiers: Hypothyroidism type: unspecified Qualified Code(s): E03.9 - Hypothyroidism, unspecified Code(s): E03.9 - Hypothyroidism, unspecified Status: Chronic Assessment and Plan: TSH is mildly elevated with normal T4, slightly decreased T3 * Continue levothyroxine * She will need repeat reflex TSH in 4-6 weeks as an outpatient upon resolution of acute illness (8) Elevated LFTs: Code(s): R79.89 - Other specified abnormal findings of blood chemistry Status: Acute Assessment and Plan: Most likely related to rhabdomyolysis. * AST with slow improvement * Statin on hold. Resume when appropriate * Continue to monitor LFT (9) Anemia: Code(s): D64.9 - Anemia, unspecified Status: Acute Assessment and Plan: Noted to have 4 point decline in hemoglobin from admission * Suspect initial H&H was hemoconcentrated and has returned to baseline with rehydration * H&H remaining stable * Continue to monitor closely
--- NOTE | 2021-07-06 13:56 | PM.IMPN ---
Progress Note: A&P Assessment and Plan (1) Rhabdomyolysis: Qualifiers: Encounter type: initial encounter Rhabdomyolysis type: traumatic Qualified Code(s): T79.6XXA - Traumatic ischemia of muscle, initial encounter Code(s): M62.82 - Rhabdomyolysis Status: Acute Assessment and Plan: Patient was found on the ground, there for an unknown length of time. CK on presentation was 3100 3+ blood on UA secondary to rhabdo Improved with IV fluid rehydration CK is 660 today Will discontinue IV fluids (2) Urinary tract infection: Code(s): N39.0 - Urinary tract infection, site not specified Status: Acute Assessment and Plan: UA abnormal on presentation with increased confusion though no urinary symptoms Started on IV Rocephin while awaiting cultures Preliminary urine culture with >100k coag-negative staph This is likely to be a contaminant therefore antibiotics discontinued 07/06 No leukocytosis. Patient remains afebrile. (3) Acute metabolic encephalopathy: Code(s): G93.41 - Metabolic encephalopathy Status: Acute Assessment and Plan: Patient had increased confusion on presentation Initially thought to be due to UTI though appears to be contaminant. Likely due to acute urinary retention. Suspect that patient has underlying dementia. Head CT with no acute intracranial findings Continue to monitor mental status closely She is A&Ox2 today. Seems to be near her baseline (4) Urinary retention: Code(s): R33.9 - Retention of urine, unspecified Status: Acute Assessment and Plan: New onset urinary retention 07/04 required straight cath with >600 cc urine output Failed subsequent voiding trial with ongoing retention on bladder scan Flores catheter started 07/04/21 Continue tamsulosin and she will follow up with urology on discharge for voiding trial (5) Chronic kidney disease, stage 3: Code(s): N18.3 - Chronic kidney disease, stage 3 (moderate) Status: Chronic Assessment and Plan: Renal function reviewed and appears consistent with baseline Continue to monitor BMP (6) Benign essential hypertension: Code(s): I10 - Essential (primary) hypertension Status: Chronic Assessment and Plan: Blood pressures were reviewed and they are stable. Last BP 154/60 Continue metoprolol tartrate 25 mg b.i.d. Monitor blood pressure trends (7) Hypothyroidism: Qualifiers: Hypothyroidism type: unspecified Qualified Code(s): E03.9 - Hypothyroidism, unspecified Code(s): E03.9 - Hypothyroidism, unspecified Status: Chronic Assessment and Plan: TSH is mildly elevated with normal T4, slightly decreased T3 Continue levothyroxine She will need repeat reflex TSH in 4-6 weeks as an outpatient upon resolution of acute illness (8) Elevated LFTs: Code(s): R79.89 - Other specified abnormal findings of blood chemistry Status: Acute Assessment and Plan: Most likely related to rhabdomyolysis. AST with slow improvement Statin on hold. Resume when appropriate Continue to monitor LFT (9) Anemia: Code(s): D64.9 - Anemia, unspecified Status: Acute Assessment and Plan: Noted to have 4 point decline in hemoglobin from admission Suspect initial H&H was hemoconcentrated and has returned to baseline with rehydration H&H remaining stable Continue to monitor closely Subjective Date/time seen: 07/06/21 13:56 Interval history: Date of service: 07/06/2021 Lashawn Roberto is an 85-year-old female with a history of CKD, hypertension, hyperlipidemia, hypothyroidism who is seen in follow-up for rhabdomyolysis. She is forgetful and is a poor historian. She denies pain. No nausea or vomiting. She is eating well. She has not been wanting to participate in therapy. Spoke with her son, Dustin, via phone today for 10 minutes. He wants to pu
[2021-07-07] MEDS: LEVOTHYROXINE SODIUM 50 MCG TABLET PO (05:43)
[2021-07-07 05:56] VITALS: BP 117/38; PULSE 84; RESP 16; TEMP 36.9; O2SAT 97
[2021-07-07 06:08] LABS: Hemoglobin 9.5 g/dL (12.0-15.0); Mean Corpuscular HGB Conc 32.8 g/dl (32-36); Mean Corpuscular Hemoglobin 28.4 pg (26-34); Mean Corpuscular Volume 86.6 fl (80-100); Mean Platelet Volume 9.6 fl (7.4-10.4); Platelet Count Result 283 k/mm3 (150-375); Red Blood Count 3.35 M/mm3 (4.2-5.4); Red Cell Distribution Width 15.3 % (11.5-14.5); White Blood Count 6.9 K/mm3 (4.5-10.0)
[2021-07-07 06:19] LABS: Anion Gap 4 mmol/L (8-16); Blood Urea Nitrogen 19 mg/dL (7-17); Calcium 7.7 mg/dL (8.4-10.2); Carbon Dioxide 22 mmol/L (22-30); Chloride 109 mmol/L (98-107); Estimated CRCL calculation 43 ml/min; Estimated Glomerular Filt Rate > 60; Glucose 89 mg/dL (65-110); Potassium 3.5 mmol/L (3.4-5.0); Sodium 135 mmol/L (137-145)
[2021-07-07 08:03] VITALS: PULSE 92
[2021-07-07] MEDS: TAMSULOSIN HCL 0.4 MG CAPSULE PO (08:03)
[2021-07-07] MEDS: METOPROLOL TARTRATE 25 MG TABLET PO (08:03)
--- NOTE | 2021-07-07 10:17 | P.DS_ITS ---
DS: Admitting Diagnosis Discharge Date 07/07/21 Admitting Diagnosis rhabdomyolysis DS: Discharge Diagnosis Discharge Diagnosis (1) Rhabdomyolysis: Qualifiers: Encounter type: initial encounter Rhabdomyolysis type: traumatic Qualified Code(s): T79.6XXA - Traumatic ischemia of muscle, initial encounter Code(s): M62.82 - Rhabdomyolysis Status: Acute Assessment and Plan: Patient was found on the ground for an unknown length of time. * CK on presentation was 3100 * 3+ blood on UA secondary to rhabdo * Improved with IV fluid rehydration * CK down to 660 * discontinued IV fluids (2) Urinary tract infection: Code(s): N39.0 - Urinary tract infection, site not specified Status: Acute Assessment and Plan: UA abnormal on presentation with increased confusion though no urinary symptoms * Started on IV Rocephin while awaiting cultures * urine culture with >100k coag-negative staph * This is likely to be a contaminant therefore antibiotics discontinued 07/06 * No leukocytosis. Patient remains afebrile. Blood cultures negative. (3) Acute metabolic encephalopathy: Code(s): G93.41 - Metabolic encephalopathy Status: Acute Assessment and Plan: Patient had increased confusion on presentation * Initially thought to be due to UTI though appears to be contaminant. Likely due to acute urinary retention. * Suspect that patient has underlying dementia. * Head CT with no acute intracranial findings * She is A&Ox2 today. Seems to be near her baseline (4) Urinary retention: Code(s): R33.9 - Retention of urine, unspecified Status: Acute Assessment and Plan: New onset urinary retention * 07/04 required straight cath with >600 cc urine output * Failed subsequent voiding trial with ongoing retention on bladder scan * Flores catheter started 07/04/21 * Continue tamsulosin and she will follow up with urology on discharge for voiding trial (5) Chronic kidney disease, stage 3: Code(s): N18.3 - Chronic kidney disease, stage 3 (moderate) Status: Chronic Assessment and Plan: Renal function reviewed and appears consistent with baseline (6) Benign essential hypertension: Code(s): I10 - Essential (primary) hypertension Status: Chronic Assessment and Plan: Blood pressures were reviewed and they are stable. * Continued metoprolol tartrate 25 mg b.i.d. (7) Hypothyroidism: Qualifiers: Hypothyroidism type: unspecified Qualified Code(s): E03.9 - Hypothyroidism, unspecified Code(s): E03.9 - Hypothyroidism, unspecified Status: Chronic Assessment and Plan: TSH is mildly elevated with normal T4, slightly decreased T3 * Continued levothyroxine * She will need repeat reflex TSH in 4-6 weeks as an outpatient upon resolution of acute illness (8) Elevated LFTs: Code(s): R79.89 - Other specified abnormal findings of blood chemistry Status: Acute Assessment and Plan: Most likely related to rhabdomyolysis. * AST with slow improvement * Statin on hold. Will have patient do repeat CMP outpatient and follow up with pcp to determine when to restart. (9) Anemia: Code(s): D64.9 - Anemia, unspecified Status: Acute Assessment and Plan: Noted to have 4 point decline in hemoglobin from admission * Suspect initial H&H was hemoconcentrated and has returned to baseline with rehydration *
--- NOTE | 2021-07-07 10:17 | PM.DS ---
DS: Admitting Diagnosis Discharge Date 07/07/21 Admitting Diagnosis rhabdomyolysis DS: Discharge Diagnosis Discharge Diagnosis (1) Rhabdomyolysis: Qualifiers: Encounter type: initial encounter Rhabdomyolysis type: traumatic Qualified Code(s): T79.6XXA - Traumatic ischemia of muscle, initial encounter Code(s): M62.82 - Rhabdomyolysis Status: Acute Assessment and Plan: Patient was found on the ground for an unknown length of time. CK on presentation was 3100 3+ blood on UA secondary to rhabdo Improved with IV fluid rehydration CK down to 660 discontinued IV fluids (2) Urinary tract infection: Code(s): N39.0 - Urinary tract infection, site not specified Status: Acute Assessment and Plan: UA abnormal on presentation with increased confusion though no urinary symptoms Started on IV Rocephin while awaiting cultures urine culture with >100k coag-negative staph This is likely to be a contaminant therefore antibiotics discontinued 07/06 No leukocytosis. Patient remains afebrile. Blood cultures negative. (3) Acute metabolic encephalopathy: Code(s): G93.41 - Metabolic encephalopathy Status: Acute Assessment and Plan: Patient had increased confusion on presentation Initially thought to be due to UTI though appears to be contaminant. Likely due to acute urinary retention. Suspect that patient has underlying dementia. Head CT with no acute intracranial findings She is A&Ox2 today. Seems to be near her baseline (4) Urinary retention: Code(s): R33.9 - Retention of urine, unspecified Status: Acute Assessment and Plan: New onset urinary retention 07/04 required straight cath with >600 cc urine output Failed subsequent voiding trial with ongoing retention on bladder scan Flores catheter started 07/04/21 Continue tamsulosin and she will follow up with urology on discharge for voiding trial (5) Chronic kidney disease, stage 3: Code(s): N18.3 - Chronic kidney disease, stage 3 (moderate) Status: Chronic Assessment and Plan: Renal function reviewed and appears consistent with baseline (6) Benign essential hypertension: Code(s): I10 - Essential (primary) hypertension Status: Chronic Assessment and Plan: Blood pressures were reviewed and they are stable. Continued metoprolol tartrate 25 mg b.i.d. (7) Hypothyroidism: Qualifiers: Hypothyroidism type: unspecified Qualified Code(s): E03.9 - Hypothyroidism, unspecified Code(s): E03.9 - Hypothyroidism, unspecified Status: Chronic Assessment and Plan: TSH is mildly elevated with normal T4, slightly decreased T3 Continued levothyroxine She will need repeat reflex TSH in 4-6 weeks as an outpatient upon resolution of acute illness (8) Elevated LFTs: Code(s): R79.89 - Other specified abnormal findings of blood chemistry Status: Acute Assessment and Plan: Most likely related to rhabdomyolysis. AST with slow improvement Statin on hold. Will have patient do repeat CMP outpatient and follow up with pcp to determine when to restart. (9) Anemia: Code(s): D64.9 - Anemia, unspecified Status: Acute Assessment and Plan: Noted to have 4 point decline in hemoglobin from admission Suspect initial H&H was hemoconcentrated and has returned to baseline with rehydration H&H remaining stable DS: Summary Hospital Course Reason for hospitalization: Lashawn Roberto is an 85-year-old female with a history of CKD, hypertension, hyperlipidemia, hypothyroidism who is seen in follow-up for rhabdomyolysis. Please see HPI for further details. Hospital Course: Please see above for details of hospital course. Status at Discharge Cognitive/behavioral status at discharge: stable Functional status at discharge: bed bound (refusing to work with t
[2021-07-07] MEDS: ACETAMINOPHEN 325 MG TABLET 650 MG PO (10:38)
[2021-07-07 11:39] LABS: EDCOVIDSCREEN Negative (Negative)
--- NOTE | 2021-07-07 12:00 | PC.NURSE ---
Attempted to call report to [facility]. They stated they were not aware patient was for sure coming. They will return my call
--- NOTE | 2021-07-07 12:30 | PC.NURSE ---
Attempted to call report to [facility]. There was no answer.
--- NOTE | 2021-07-07 13:24 | PC.NURSE ---
Attempted to call report to [facility] on three separate occasions. No answer was received at this time. Beulah from Care Coordination spoke with Kim from [facility] who stated if the nurses do not answer for report we may send the patient and the nurses will have to call us for questions. She stated the patient will have a bed available and the nurses are aware.
== END 2021-07-07 14:30 | DRG 564 ==
LOC: ANHED 14:36 → ANH2MED 15:27
PROVIDERS: Emergency Medicine; Physician Assistant; Admitting Provider Family Medicine; Emergency Provider Emergency Medicine; PCP Family Medicine; Visit Provider Physician Assistant
DX: T79.6XXA Traumatic ischemia of muscle, initial encounter (principal); G93.41 Metabolic encephalopathy; X58.XXXA Exposure to other specified factors, initial encounter; Z20.822 Contact with and (suspected) exposure to COVID-19; R33.9 Retention of urine, unspecified; D64.9 Anemia, unspecified; I12.9 Hypertensive chronic kidney disease with stage 1 through stage 4 chronic kidney disease, or unspecified chronic kidney disease; N18.30 Chronic kidney disease, stage 3 unspecified; E03.9 Hypothyroidism, unspecified; R79.89 Other specified abnormal findings of blood chemistry; Z79.899 Other long term (current) drug therapy
CPT/HCPCS: 36415; 51701; 70450; 71045; 72125; 80048; 80053; 81001; 82140; 82550; 82607; 82746; 83605; 83735; 84439; 84443; 84480; 85014; 85018; 85025; 85027; 87040; 87077; 87086; 87088; 87186; 87426; 93005; 96361; 96365; 96375; 97110; 97162; 97165; 97166; 97530; 99285; A9270; C9803; G0378; J0131; J0456; J0696; J7030

== ENCOUNTER 2021-08-18 07:30 | Outpatient (RCR) | payer MEDICARE, SELFPAY ==
[2021-08-18 08:08] LABS: Hematocrit 27.7 % (37.0-47.0); Hemoglobin 8.5 g/dL (12.0-15.0)
[2021-08-18] MEDS: ACETAMINOPHEN 500 MG TABLET PO (08:24)
[2021-08-18] MEDS: diphenhydrAMINE HCl INJ 50 MG/ML VIAL 25 MG IV PUSH (08:24)
[2021-08-18 08:25] VITALS: BMI 26.9
--- NOTE | 2021-08-18 09:12 | PC.NURSE ---
Patient's hgb today is 8.5, dr dominique's office called to report lab value. Dr dominique would like her to only receive one unit of blood instead of the 2 units that were originally ordered.
[2021-08-18 09:30] VITALS: BP 139/68; PULSE 77; RESP 16; TEMP 36.9; O2SAT 98
[2021-08-18 09:45] VITALS: BP 103/47; PULSE 77; RESP 16; TEMP 36.6; O2SAT 98
[2021-08-18 10:45] VITALS: BP 120/94; PULSE 76; RESP 16; TEMP 36.5; O2SAT 96
[2021-08-18 12:40] VITALS: BP 142/58; PULSE 80; RESP 16; TEMP 36.7; O2SAT 98
== END 2021-11-15 23:59 | disposition home or self-care (01) ==
LOC: ANHCPCTRAN 07:30
PROVIDERS: PCP Family Medicine; Visit Provider Family Medicine
DX: D64.9 Anemia, unspecified (principal)
CPT/HCPCS: 36415; 36430; 85014; 85018; 86850; 86900; 86901; 86920; A9270; J1200; P9016

== ENCOUNTER 2022-08-14 17:50 | Emergency (ER) | payer MEDICARE, MEDICAID, SELFPAY ==
--- NOTE | ~2022-08-14 | CT_ITS ---
EXAMINATION: CT brain wo con DATE: 08/14/2022 20:16 INDICATION: fall, head injury, bumo to L forehead, hx dementia . TECHNIQUE: Computed tomography (CT) of the head was performed without intravenous contrast. The mA wa s adjusted according to patient size. Iterative reconstruction technique was employed. The dose-lengt h product was 605.33 mGy-cm. COMPARISON: 07/03/2021. FINDINGS: No acute intracranial hemorrhage or extra-axial fluid collection. No hydrocephalus, mass, or herniation. No acute ischemic infarct. Unremarkable dural venous sinus attenuation. No acute osseous abnormality. Left posterior frontal scalp contusion. The aerated spaces are clear. Moderate atrophy and chronic white matter change. Atherosclerotic intracranial calcification. Right o ccipital encephalomalacia. IMPRESSION: No acute intracranial process. Reviewed, dictated and finalized at location K.
--- NOTE | ~2022-08-14 | CT_ITS ---
EXAMINATION: CT cervical spine wo con DATE: 08/14/2022 20:17 INDICATION: fall, neck trauma TECHNIQUE: Computed tomography (CT) of the cervical spine was performed without intravenous contrast. Automated exposure control and iterative reconstruction technique were employed. The dose-length pro duct was 151.56 mGy-cm. COMPARISON: 07/03/2021. FINDINGS: Vertebral Body Alignment: Intact. Stable mild multilevel degenerative listheses. Craniocervical and atlantoaxial alignment: Severe degenerative change. Alignment intact. Osseous structures/fracture: Severe osteopenia. Lateral scoliosis. No evidence of a lytic or blastic process in the visualized spine. No evidence of acute fracture. . Cervical soft tissues: The paraspinal soft tissues planes are maintained. Biapical pleural scarring. Degenerative changes: Multilevel severe degenerative disc disease. Multilevel facet arthropathy. No s evere central canal or neural foraminal narrowing. IMPRESSION: No acute fracture or traumatic malalignment in the cervical spine. Reviewed, dictated and finalized at location K.
[2022-08-14 17:50] VITALS: BP 162/66; PULSE 82; RESP 18; TEMP 36.9; O2SAT 99
--- NOTE | 2022-08-14 21:14 | ED.GENADULT ---
HPI - General Adult General Chief complaint: Fall Stated complaint: fall Time Seen by Provider: 08/14/22 20:36 History of Present Illness HPI narrative: Patient 86-year-old female who presents the emergency department with chief complaint of fall out of bed. The patient reports that she is a resident of a local nursing facility and rolled out of the bed today. The patient does not give a full history as she is intermittently confused. Patient currently has no complaints Related Data Home Medications Medication Instructions Recorded Confirmed cranberry 400 mg capsule 400 mg PO DAILY 04/03/19 07/03/21 Allergies Allergy/AdvReac Type Severity Reaction Status Date / Time No Known Allergies Allergy Verified 07/03/21 11:51 Review of Systems Review of Systems: A 10 system review of systems was completed on the patient and is negative except for what is stated in the HPI. Nursing and ancillary documentation was reviewed. [facility] Past Medical History Medical History Benign essential hypertension Chronic kidney disease, stage 3 Chronic recurrent major depressive disorder Hyperlipidemia Hypothyroidism Surgical History Surgical History History of total hysterectomy (1980) Family History Family History Mother Depression Other Family history of cardiovascular disease Social History Social History Social History: Surrogate decision maker: Dustin Roberto, mychal. Code status: Full code. Smoking status: Never smoker Second hand tobacco smoke exposure: No Alcohol intake: never Substance use: never Additional living arrangements comments: The patient lives in her own home in [place]. Exam Narrative: GENERAL: Well-appearing, well-nourished, and in no acute distress. HEAD: Normocephalic, atraumatic. EYES: PERRLA and EOMI. ENT: Nares clear, no rhinorrhea or epistaxis. Mucous membranes moist. NECK: Supple. CHEST: Clear to auscultation. No respiratory distress. HEART: Regular rate and rhythm. No murmur heard. Normal peripheral pulses. ABDOMEN: Soft, nontender, nondistended, normal active bowel sounds. EXTREMITIES: Normal range of motion. No edema. SKIN: Warm, dry, no rash. NEURO: No focal deficits. Alert and slightly confused but directable and able to be oriented. PSYCH: Normal mood and affect. Course Vital Signs Vital signs: Vital Signs Temperature 36.9 C 08/14/22 17:50 Pulse Rate 82 08/14/22 17:50 Respiratory Rate 18 08/14/22 17:50 Blood Pressure 162/66 H 08/14/22 17:50 Pulse Oximetry 99 08/14/22 17:50 Oxygen Delivery Room Air 08/14/22 17:50 Temperature 36.9 C 08/14/22 17:50 Pulse Rate 82 08/14/22 17:50 Respiratory Rate 18 08/14/22 17:50 Blood Pressure 162/66 H 08/14/22 17:50 Pulse Oximetry 99 08/14/22 17:50 Oxygen Delivery Room Air 08/14/22 17:50 Medical Decision Making MDM Narrative Medical decision making narrative: Differential diagnosis includes head injury, intracranial hemorrhage, cervical spine fracture. FDC information was obtained which the patient has baseline ANO x2 and the patient is unchanged from her baseline neurological status. This time lab tests were not warranted as there is no change. CT head and CT C-spine showed no acute abnormalities. Vital Signs Vital Signs: Vital Signs Temperature 36.9 C 08/14/22 17:50 Pulse Rate 82 08/14/22 17:50 Respiratory Rate 18 08/14/22 17:50 Blood Pressure 162/66 H 08/14/22 17:50 Pulse Oximetry 99 08/14/22 17:50 Oxygen Delivery Room Air 08/14/22 17:50 Temperature 36.9 C 08/14/22 17:50 Pulse Rate 82 08/14/22 17:50 Respiratory Rate 18 08/14/22 17:50 Blood Pressure 162/66 H 08/14/22 17:50 Pulse O
[2022-08-14 23:02] VITALS: BP 156/69; PULSE 93; RESP 18; O2SAT 96
== END 2022-08-14 23:03 ==
PROVIDERS: Emergency Provider Emergency Medicine; PCP Family Medicine
DX: R41.0 Disorientation, unspecified (principal); I12.9 Hypertensive chronic kidney disease with stage 1 through stage 4 chronic kidney disease, or unspecified chronic kidney disease; N18.30 Chronic kidney disease, stage 3 unspecified; E78.5 Hyperlipidemia, unspecified; E03.9 Hypothyroidism, unspecified; W06.XXXA Fall from bed, initial encounter; Y92.122 Bedroom in nursing home as the place of occurrence of the external cause
CPT/HCPCS: 70450; 72125; 99284

== ENCOUNTER 2022-11-22 03:26 | Emergency (ER) | payer OTHER, SELFPAY ==
--- NOTE | ~2022-11-22 | XR_ITS ---
AP view of the pelvis and AP and lateral views of the bilateral hips Clinical history: Pain Findings: No acute fracture or dislocation is seen. Osseous alignment is anatomic. Bilateral hip and SI joint spaces are preserved. Soft tissues are unremarkable. Impression: No significant abnormality is seen. Reviewed, dictated and finalized at location . Impression: No significant abnormality is seen.
--- NOTE | ~2022-11-22 | CT_ITS ---
Noncontrast CT scan of the cervical spine Technique: Multiple contiguous axial [address] images of the cervical spine were obtained and rec onstructed in 2D sagittal and coronal planes on the acquisition scanner. Dose reduction technique was used on this scan by utilizing automated exposure control, adjustment of the mA and/or kV according to patient size. The dose-length product (DLP) was 681.00 mGy-cm. Clinical History: Pain COMPARISON: 08/14/2022 Findings: No fractures or dislocations. Osseous alignment is unchanged from prior exam. There is sev ere degenerative disc narrowing and partial fusion across the C5-C6 disc space. There is advanced deg enerative disc narrowing at C4-C5 and C6-C7. There are uncovertebral degenerative changes at these le vels. There is advanced degenerative change at the articulation of the odontoid process with the ante rior arch of C1. There is moderate facet arthropathy bilaterally at C2-C3, with probable mild right neural foraminal n arrowing. There is left neural foraminal narrowing at C3-C4 with severe facet arthropathy at the left side at this level. There is mild disc bulge and probable mild canal stenosis at this level. At C4-C5, there is minimal disc osteophyte complex and left-sided facet arthropathy. No definite rebecca l stenosis or neural foraminal narrowing. Probable mild bilateral neural foraminal narrowing at C5-C6 . There is probable mild right neural foraminal narrowing at C6-C7. No prevertebral soft tissue swelling. Impression: No fracture or subluxation of the cervical spine. Degenerative spondylosis, as detailed above, similar to prior exam. Reviewed, dictated and finalized at [facility]. Impression: No fracture or subluxation of the cervical spine. Degenerative spondylosis, as detailed above, similar to prior exam.
--- NOTE | ~2022-11-22 | XR_ITS ---
Right ankle Technique: AP, oblique, and lateral views were obtained. Clinical History: Pain Findings: No acute fracture or dislocation is seen. Generalized osteopenia noted. Osseous alignment i s anatomic. Ankle mortise and other visualized joint spaces are preserved. Soft tissues are otherwis e unremarkable. Impression: No fracture or dislocation. Generalized osteopenia. Reviewed, dictated and finalized at location . Impression: No fracture or dislocation. Generalized osteopenia.
--- NOTE | ~2022-11-22 | XR_ITS ---
Right Knee Technique: AP, lateral, and oblique views were obtained. Clinical History: Pain Findings: No fracture or dislocation is seen. Osseous alignment is anatomic. There is mild to moderat e tricompartmental degenerative spurring. There is probable chondrocalcinosis of the menisci. Soft ti ssues are otherwise unremarkable. No joint effusion is seen. Impression: Mild to moderate tricompartmental degenerative spurring. Chondrocalcinosis of the menisci. Reviewed, dictated and finalized at location M. Impression: Mild to moderate tricompartmental degenerative spurring. Chondrocalcinosis of the menisci.
--- NOTE | ~2022-11-22 | CT_ITS ---
CT head without contrast Indication: Head injury COMPARISON: 08/14/2022 Technique: Serial scans were obtained through the brain without the administration of contrast. Dose reduction technique was used on this scan by utilizing automated exposure control and iterative recon struction technique. The dose-length product (DLP) was 681.00 mGy-cm. Findings: There is no evidence of intracranial hemorrhage, mass lesion, or acute infarct. 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 The ventricles and subarachnoid spaces are dilated, consisten t with mild to moderate atrophy. Low attenuation regions are seen within the periventricular white m atter bilaterally, likely representing changes from chronic microvascular ischemic disease. There is no evidence of edema, mass effect or midline shift. The visualized paranasal sinuses and mastoid ai r cells are clear. Impression: No intracranial hemorrhage, mass, or acute infarct. Stable chronic right occipital infarct. Atrophy and chronic white matter changes, as above. Reviewed, dictated and finalized at location . Impression: No intracranial hemorrhage, mass, or acute infarct. Stable chronic right occipital infarct. Atrophy and chronic white matter changes, as above.
[2022-11-22 03:27] VITALS: BP 153/61; PULSE 69; RESP 15; TEMP 36.1; O2SAT 99
[2022-11-22] MEDS: TETANUS,DIPHTHERIA,AC PERTUSSIS ADULT (0.5 ML) BOOSTRIX IM (04:25)
--- NOTE | 2022-11-22 04:54 | ED.GENADULT ---
HPI - General Adult General Chief complaint: Fall Stated complaint: FALL; EYEBROW LAC Time Seen by Provider: 11/22/22 03:39 History of Present Illness HPI narrative: Patient is a 86-year-old female who presents emerged from with chief complaint of fall. Patient is a resident of a local nursing facility and a ground-level fall that was unwitnessed and had a small laceration to her left eyebrow area and reports a negative head and neck lower extremity pain. Patient is not really able to provide much history Related Data Home Medications Medication Instructions Recorded Confirmed cranberry 400 mg capsule 400 mg PO DAILY 04/03/19 07/03/21 Allergies Allergy/AdvReac Type Severity Reaction Status Date / Time No Known Allergies Allergy Verified 11/22/22 03:45 Review of Systems Review of Systems: A 10 system review of systems was completed on the patient and is negative except for what is stated in the HPI. Nursing and ancillary documentation was reviewed. PMFSH Past Medical History Medical History Benign essential hypertension Chronic kidney disease, stage 3 Chronic recurrent major depressive disorder Hyperlipidemia Hypothyroidism Surgical History Surgical History History of total hysterectomy (1980) Family History Family History Mother Depression Other Family history of cardiovascular disease Social History Social History Social History: Surrogate decision maker: Dustin Roberto, mychal. Code status: Full code. Smoking status: Never smoker Second hand tobacco smoke exposure: No Alcohol intake: never Substance use: never Additional living arrangements comments: The patient lives in her own home in [place]. Exam Narrative: GENERAL: Well-appearing, well-nourished, and in no acute distress. HEAD: Normocephalic, 1.5 cm laceration to the left eyebrow. EYES: PERRLA and EOMI. ENT: Nares clear, no rhinorrhea or epistaxis. Mucous membranes moist. NECK: Supple. There is midline C-spine tenderness CHEST: Clear to auscultation. No respiratory distress. HEART: Regular rate and rhythm. No murmur heard. Normal peripheral pulses. ABDOMEN: Soft, nontender, nondistended, normal active bowel sounds. EXTREMITIES: Normal range of motion. No edema. There is tenderness to palpation bilateral hips right knee and right ankle SKIN: Warm, dry, no rash. NEURO: No focal deficits. Alert and pleasantly confused. PSYCH: Normal mood and affect. Course Vital Signs Vital signs: Vital Signs Temperature 36.1 C L 11/22/22 03:27 Pulse Rate 69 11/22/22 03:27 Respiratory Rate 15 11/22/22 03:27 Blood Pressure 153/61 H 11/22/22 03:27 Pulse Oximetry 99 11/22/22 03:27 Oxygen Delivery Room Air 11/22/22 03:27 Temperature 36.1 C L 11/22/22 03:27 Pulse Rate 77 11/22/22 06:04 Respiratory Rate 16 11/22/22 06:04 Blood Pressure 176/65 H 11/22/22 06:04 Pulse Oximetry 100 11/22/22 06:04 Oxygen Delivery Room Air 11/22/22 03:27 Procedures Laceration Laceration 1: Date: 11/22/22 Time: 04:56 Site: face Side (If applicable): left Size (cm): 1.5 Description: stellate Depth: simple, single layer Pre-repair: wound explored and irrigated ====== Skin Level ====== Skin layer closed with: dermabond ====== Subcutaneous Layer ====== ====== Muscle Layer ====== ====== Tendon Layer ====== Medical Decision Making [facility] Narrative Medical decision making narrative: Differential diagnosis includes intracranial hemorrhage, facial laceration, cervical spine fracture, hip fracture knee fracture ankle fracture/contusion CT head and CT C-spine showed no evidence of
[2022-11-22 06:04] VITALS: BP 176/65; PULSE 77; RESP 16; O2SAT 100
[2022-11-22 06:54] VITALS: BP 165/76; PULSE 81; RESP 16; O2SAT 98
[2022-11-22 07:09] VITALS: BP 167/64; PULSE 74; RESP 15; O2SAT 98
== END 2022-11-22 08:39 ==
PROVIDERS: Emergency Provider Emergency Medicine; PCP Family Medicine
DX: S01.112A Laceration without foreign body of left eyelid and periocular area, initial encounter (principal); S70.00XA Contusion of unspecified hip, initial encounter; I12.9 Hypertensive chronic kidney disease with stage 1 through stage 4 chronic kidney disease, or unspecified chronic kidney disease; N18.30 Chronic kidney disease, stage 3 unspecified; E03.9 Hypothyroidism, unspecified; E78.5 Hyperlipidemia, unspecified; W19.XXXA Unspecified fall, initial encounter; Z23 Encounter for immunization
CPT/HCPCS: 12011; 70450; 72125; 73521; 73562; 73610; 90471; 90715; 99284